=== PATIENT | female | born 1990 | race Caucasian/White ===

== ENCOUNTER 2022-01-20 10:14 | Outpatient (CLI) | payer BC, SELFPAY ==
[2022-01-20 11:56] LABS: Ur HCG Qualitative* Negative (Negative)
[2022-01-20 14:31] LABS: SARS PCR* Negative SARS-CoV-2 (Negative)
== END 2022-01-20 10:15 | disposition home or self-care (01) ==
PROVIDERS: PCP Nurse Practitioner Family; Visit Provider Nurse Practitioner Family
DX: Z20.822 Contact with and (suspected) exposure to COVID-19 (principal); Z01.818 Encounter for other preprocedural examination
CPT/HCPCS: 81025; 87635

== ENCOUNTER 2022-07-16 15:13 | Outpatient (CLI) | payer BC, SELFPAY ==
[2022-07-16 16:23] LABS: Chloride* 107 mmol/L (96-114)
[2022-07-16 16:24] LABS: Albumin* 5.1 g/dL (3.3-5.0); Sodium* 142 mmol/L (135-149)
[2022-07-16 16:25] LABS: Potassium* 4.2 mmol/L (3.6-5.1)
[2022-07-16 16:27] LABS: Alanine Aminotransferase* 21 U/L (4-35); Alkaline Phosphatase* 61 U/L (40-150); Aspartate Amino Transferase* 27 U/L (12-35); Bilirubin Total* 0.4 mg/dL (0.1-1.5); Blood Urea Nitrogen* 21 mg/dL (5-24); Carbon Dioxide* 27 mmol/L (20-32); Creatinine* 0.7 mg/dL (0.5-1.5); Estimated Glomerular Filt Rate 117 ml/min; Total Protein* 7.5 g/dL (6.0-8.3)
[2022-07-16 16:28] LABS: Calcium* 9.6 mg/dL (8.4-10.6); Glucose* 107 mg/dL (60-115)
[2022-07-16 17:09] LABS: D Dimer Quantitative* < 0.27 ug/ml (0.00-0.50)
[2022-07-16 17:11] LABS: Troponin I* < 0.01 ng/mL (0.01-0.04)
== END 2022-07-16 15:14 | disposition home or self-care (01) ==
PROVIDERS: PCP Nurse Practitioner Family; Visit Provider Internal Medicine
DX: R00.2 Palpitations (principal); L65.9 Nonscarring hair loss, unspecified
CPT/HCPCS: 80053; 84484; 85379

== ENCOUNTER 2022-07-22 09:28 | Outpatient (CLI) | payer BC, SELFPAY ==
[2022-07-23 15:48] LABS: Vitamin D 25 Hydroxy* 52 ng/mL (30-80)
== END 2022-07-22 09:29 | disposition home or self-care (01) ==
LOC: KYNREF 09:29
PROVIDERS: PCP Nurse Practitioner Family; Visit Provider Nurse Practitioner Family
DX: L65.9 Nonscarring hair loss, unspecified (principal); Z13.29 Encounter for screening for other suspected endocrine disorder
CPT/HCPCS: 82306; 84443

== ENCOUNTER 2022-07-30 14:54 | Outpatient (CLI) | payer BC, SELFPAY | END 2022-07-30 14:55 | disposition home or self-care (01) | LOC: RAD 14:55 | PROVIDERS: PCP Nurse Practitioner Family; Visit Provider Nurse Practitioner Family | DX: I51.7 Cardiomegaly (principal); Z82.49 Family history of ischemic heart disease and other diseases of the circulatory system | CPT/HCPCS: 93306 ==

== ENCOUNTER 2023-09-28 08:32 | Outpatient (CLI) | payer OTHER, SELFPAY ==
--- NOTE | 2023-09-28 08:45 | MM_ITS ---
Patient: PAWAN GONZALEZ Facility:?[facility] Patient ID:?[id number] Site Patient ID:?[id number] Site :?1990 Study:?XRay-Breast Bilateral 3D W/CAD-09/28/2023 9:21:08 AM Ordering Physician:Jann Final Report: DIGITAL DIAGNOSTIC BILATERAL MAMMOGRAM USING TOMOSYNTHESIS AND COMPUTER-AIDED DETECTION RIGHT BREAST ULTRASOUND CLINICAL HISTORY: RIGHT breast lump. COMPARISON: None. TECHNIQUE: Digital BILATERAL mammogram in four projections. Tomosynthesis and CAD utilized. Real-time ultrasound imaging of RIGHT breast with imaging documentation. BREAST COMPOSITION: The breasts are heterogeneously dense, which may obscure small masses. FINDINGS: 3D CC/MLO BILATERAL mammogram images submitted. No suspicious masses or architectural distortion. No suspicious calcifications or adenopathy. Targeted RIGHT breast ultrasound performed 11 o`clock 6 cm from the nipple performed. Normal fibroglandular tissue is present. No fibrocystic change or solid mass. IMPRESSION: No evidence of malignancy. Normal BILATERAL mammogram images and normal targeted RIGHT breast ultrasound. RECOMMENDATIONS: Clinical follow-up and age-appropriate screening mammography. Results and recommendations discussed with the patient. BI-RADS Category 2: Benign A lay language report of this examination will be provided to the patient. Dictated by Anselmo Vilchis MD @ 09/28/2023 9:40:50 AM jj/Dictated by: Anselmo Vilchis MD @ 09/28/2023 9:41:00 AM Signed by:?Anselmo Vilchis MD @09/28/2023 1:54:55 PM (Electronic Signature)
--- NOTE | 2023-09-28 09:15 | US_ITS ---
Patient: PAWAN GONZALEZ Facility:?[facility] Patient ID:?[id number] Site Patient ID:?[id number] Site :?1990 Study:?US-Breast Right -09/28/2023 9:18:49 AM Ordering Physician:CAMERON Final Report: PLEASE SEE DIGITAL DIAGNOSTIC BILATERAL MAMMOGRAM PERFORMED SAME DAY CRL:jean pena/Dictated by: Anselmo Vilchis MD @ 09/28/2023 9:41:00 AM Signed by:?Anselmo Vilchis MD @09/28/2023 1:54:53 PM (Electronic Signature)
== END 2023-09-28 08:33 | disposition home or self-care (01) ==
LOC: MAMMO 08:33
PROVIDERS: PCP Nurse Practitioner Family; Visit Provider Nurse Practitioner Family
DX: N63.10 Unspecified lump in the right breast, unspecified quadrant (principal)
CPT/HCPCS: 76642; 77066; G0279

== ENCOUNTER 2025-06-26 13:26 | Outpatient (CLI) | payer OTHER, SELFPAY ==
[2025-06-28 21:22] LABS: HPV Source Cervical
[2025-07-04 11:43] LABS: Pap Test Screened Manually Done
== END 2025-06-26 13:27 | disposition home or self-care (01) ==
PROVIDERS: PCP Nurse Practitioner Family; Visit Provider Obstetrics & Gynecology
DX: Z12.4 Encounter for screening for malignant neoplasm of cervix (principal)
CPT/HCPCS: 87624; 87625; 88141; 88142; 88175

== ENCOUNTER 2025-06-28 07:58 | Outpatient (CLI) | payer OTHER, SELFPAY | END 2025-06-28 07:59 | disposition home or self-care (01) | LOC: NFLDREF 07-03 10:49 | PROVIDERS: PCP Nurse Practitioner Family; Referring Provider Nurse Practitioner Family; Visit Provider Obstetrics & Gynecology | DX: L65.9 Nonscarring hair loss, unspecified (principal) | CPT/HCPCS: 80061; 82306; 84443 ==